=== PATIENT | female | born 1945 | race Caucasian/White ===

== ENCOUNTER → 2018-05-04 10:44 | Outpatient (POV) | payer MEDICARE, OTHER, SELFPAY | PROVIDERS: Visit Provider Dentist | DX: Z00.00 Encounter for general adult medical examination without abnormal findings (principal) ==

== ENCOUNTER → 2018-05-17 07:00 | Outpatient (CLI) | payer MEDICARE, OTHER, SELFPAY ==
--- NOTE | 2018-05-17 07:04 | CT_ITS ---
CT abdomen pelvis wo con CLINICAL INDICATION: Right flank pain with dysuria and hematuria ITS.REASON: DYSURIA, ACUTE RT FLANK PAIN, HEMATURIA ORDERING PHYSICIAN: Verna Sarmiento PATIENT AGE: 72 years COMPARISON: None TECHNIQUE: Axial images obtained with sagittal and coronal reformats. All CT scans at the facility use one or more dose reduction, viz: automated exposure control, ma/kV adjustment per patient size (including targeted exams where dose is matched to indication, i.e. head), or iterative reconstruction technique. PROCEDURE: Oral Contrast: None IV Contrast: None . FINDINGS: There are mild atelectatic or fibrotic changes in the right lung base. The liver has an unremarkable appearance. Gallstones are present within a contracted gallbladder. Spleen and adrenal glands have an unremarkable appearance as does the pancreas There is mild dilatation of the right renal collecting system and right ureter. A faint calcific density is present in the right paracentral and posterior aspect of the urinary bladder at 3 mm and may be due to a stone just at the ureterovesical junction or within the urinary bladder. No left renal calculi are evident. No intestinal obstruction or free air. Prior appendectomy. Sigmoid and descending colon diverticulosis without evidence of diverticulitis. Multiple calcifications are present involving the uterus and may be related to fibroid involvement No acute bony findings. IMPRESSION: 1. Mild ectasia of the right renal collecting system secondary to a 3 mm stone at the ureterovesical junction or recently passed stone near the UVJ 2. Diverticulosis without evidence of diverticulitis
== END ==
PROVIDERS: PCP Nurse Practitioner Family; Visit Provider Nurse Practitioner Family
DX: R10.9 Unspecified abdominal pain (principal); R30.0 Dysuria; R31.9 Hematuria, unspecified
CPT/HCPCS: 74176

== ENCOUNTER → 2020-11-14 13:43 | Outpatient (CLI) | payer MEDICARE, OTHER, SELFPAY ==
--- NOTE | 2020-11-14 13:51 | US_ITS ---
PROCEDURE: US THYROID CLINICAL INDICATION: THYROID NODULE Follow-up thyroid nodules COMPARISON: US THY US THYROID from 11/02/2016 US BX US BIOPSY OR PARACENTESIS from 11/29/2016 FINDINGS: Right lobe: 2.1cm x 4.3cm x 1.4cm. The 2.2 x 1.4 cm isoechoic to slightly hyperechoic nodule with some internal areas of decreased echogenicity in the mid polar region. Previously this had a more cystic appearance but no change in size with no obvious internal calcifications. There is some lobularity of this nodule anteriorly which may actually represent an additional small nodule. This nodule was previously biopsied and was benign. Isoechoic nodule upper pole at 1 cm Left lobe: 3.9cm x 7.1cm x 3.2cm. Solid-appearing 2.6 x 1.5 cm isoechoic nodule mid polar region. 4.3 x 2.7 cm mixed nodule mid polar area. 4 x 2.7 cm slightly hyperechoic mixed nodule in the lower pole. These 2 dominant nodules on the left 4 previously biopsied and were benign Isthmus: Slightly thickened at 6 mm Additional findings: IMPRESSION: Multinodular goiter as described above overall not significantly changed. Scanning technique is somewhat different on today's exam compared to the previous study. Consider 6-12 month follow-up to confirm stability. Dictated by: Rakesh Allen MD 11/18/2020 08:23 Rakesh Allen MD in [place] 11/18/2020 08:23
== END ==
PROVIDERS: PCP Family Medicine; Visit Provider Nurse Practitioner Family
DX: E04.1 Nontoxic single thyroid nodule (principal)
CPT/HCPCS: 76536

== ENCOUNTER → 2022-02-17 12:29 | Outpatient (CLI) | payer MEDICARE, OTHER, SELFPAY ==
--- NOTE | 2022-02-17 12:35 | US_ITS ---
FINAL REPORT CLINICAL HISTORY: THYROID NODULE FINDINGS: THYROID ULTRASOUND Sonographic images of the thyroid was obtained. The right lobe of the thyroid measures 4.2 x 2.2 x 1.4 cm. The left lobe of the thyroid measures 6.5 x 4.8 x 3.1 cm. The isthmus measures 4 mm. There are multiple nodules in the bilateral lobes of the thyroid. The individual nodules measure up to 1.7 cm in the mid right lobe and up to 2.1 cm in the left mid lobe. There is a dominant nodule in the left lower lobe measures 6.1 x 3.1 cm. There are numerous other smaller nodules. IMPRESSION: Multiple thyroid nodules consistent with TI-RADS 4 with least 3 nodules greater than 1.5 cm. Bilateral nodule sampling is recommended. Reviewed, Interpreted and Dictated by Robert Mcdonald MD Transcribed by Gracie Becerra Authenticated and [facility]
== END ==
PROVIDERS: PCP Family Medicine; Visit Provider Nurse Practitioner Family
DX: E04.1 Nontoxic single thyroid nodule (principal)
CPT/HCPCS: 76536

== ENCOUNTER 2022-11-01 14:44 | Emergency (ER) | payer MEDICARE, OTHER, SELFPAY ==
[2022-11-01 15:05] VITALS: BP 142/83; PULSE 97; RESP 21; TEMP 37.4; O2SAT 97; BMI 28.3
--- NOTE | 2022-11-01 15:30 | EXP.UTC ---
Discharge Plan Disposition Patient Disposition: Home, Self-Care Condition: Good Prescriptions Prescriptions: New azithromycin [Zithromax Z-Juan] 250 mg tablet See Rx Instructions .ROUTE .COMPLEX 5 Days Qty: 6 0RF Rx Instructions: For 250 mg dose pack: take 500 mg today (day 1), then 250 mg for 4 days (days 2-5) benzonatate 100 mg capsule 100 mg PO TID PRN (Reason: cough) Qty: 30 0RF guaifenesin [Mucinex] 600 mg tablet extended release 12hr 600 mg PO BID PRN (Reason: cough/congestion) Qty: 20 0RF albuterol sulfate [Proventil HFA] 90 mcg/actuation HFA aerosol inhaler 1 - 2 inh inhalation Q6H PRN (Reason: shortness of breath or wheezing) Qty: 8.5 0RF prednisone 10 mg tablet 10 mg PO BID 5 Days Qty: 10 0RF No Action atorvastatin 20 mg tablet 20 mg PO HS Referrals Follow up/Referrals: Georgette Messer MD [Primary Care Provider] - See instructions Activity Restrictions/Add. Instructions Additional Instructions/Restrictions: Start antibiotic today. Be sure to complete entire prescription even if feeling better Monitor temp. Tylenol every 4 hours as needed and / or ibuprofen every 6 hours as needed ( As long as your primary care physician has told you that it ok to take both. For fever/aches/pains ER if no less than 101 despite Tylenol or Motrin Humidifier/vaporizer or hot steamy shower Inhaler every 4-6 hours as needed like we discussed. If unsure how to use it, ask pharmacist to demonstrate how. Should help open airways and improve cough, wheezing, and shortness of breath Mucinex during the day for your cough and cough suppressant only at night. Be sure to drink lots of water. *Tessalon Perles will not cause drowsiness but use at bedtime to help stop cough so that you may get some rest. *Start oral steroid tomorrow. Helps with inflammation therefore, cough and wheezing. Follow directions on the package. Reviewed side effects. Patient reports taking them before. Follow up IMMEDIATELY for new or worsening of symptoms OR no noticeable improvement over the next 48-72 hours. 911 immediately for any life threatening symptoms such as chest pain or difficulty breathing Clinical Impressions Clinical Impression: Bronchitis Sinusitis Qualifiers: Sinusitis location: unspecified location Chronicity: unspecified Qualified Code(s): J32.9 - Chronic sinusitis, unspecified Instructions Patient Instructions: Sinusitis, DI for Sinusitis Discharge ED Provider: Malka Patterson [facility] [place] HPI General Stated complaint: Drainage, chest congestion Mode of Arrival: Ambulatory Source of Information: Patient Limitations: No Limitations Time Seen by Provider: 11/01/22 15:30 Description of Symptoms (Recalled from Triage Doc. by RN): PATIENT C/O CHEST CONGESTION, DRY COUGH, AND FEVER X 2 DAYS HEENT Symptoms (Recalled from RN notes): No Resp Symptoms (Recalled from RN notes): Yes Skin Symptoms (Recalled from RN notes): No MS Symptoms (Recalled from RN notes): No Functional Status (Recalled from RN notes): WNL History of Present Illness Provider Complaint: Patient states that she been having sinus congestion and pressure with drainage in the back of her throat and feels like it is trying to settle into her chest States that she use to get this about once a year and had to get antibiotics for it States she wanted to come in and get something for it and for the cough before it got too bad States that she feels like she may have bronchitis Related Data Home Medications Medication Instructions Recorded Confirmed atorvastatin 20 mg tablet 20 mg PO HS Cholesterol 11/01/22 11/01/22 Previous Rx's Medication Instructions Recorded albuterol sulfate 90 mcg/actuation 1 - 2 inh inhalation Q6H PRN 11/01/22 aerosol inhaler (Proventil HFA) shortness of breath or wheezing #8.5 grams azithromycin 250 mg tablet See Rx Instructions PO .COMPLEX 5 11/01/22 (Zithromax Z-Juan) days #6 tabs
[2022-11-01 15:58] VITALS: BP 142/83; PULSE 97; RESP 21; TEMP 37.4; O2SAT 97
== END 2022-11-01 16:20 | disposition home or self-care (01) ==
PROVIDERS: Emergency Provider Nurse Practitioner; PCP Family Medicine
DX: J20.9 Acute bronchitis, unspecified (principal); J32.9 Chronic sinusitis, unspecified; R50.9 Fever, unspecified; F17.210 Nicotine dependence, cigarettes, uncomplicated
CPT/HCPCS: 96372; 99204; 99212; 99214; G0463; J0696

== ENCOUNTER → 2023-04-21 09:56 | Outpatient (CLI) | payer MEDICARE, OTHER, SELFPAY ==
[2023-04-21 13:27] LABS: Thyroid Stimulating Hormone 3.61 uIU/mL (0.465-4.68)
== END ==
PROVIDERS: PCP Family Medicine; Visit Provider Nurse Practitioner
DX: E04.1 Nontoxic single thyroid nodule (principal); R79.89 Other specified abnormal findings of blood chemistry; Z98.890 Other specified postprocedural states
CPT/HCPCS: 36415; 84443

== ENCOUNTER 2023-05-07 10:22 | Emergency (ER) | payer MEDICARE, OTHER, SELFPAY ==
[2023-05-07 10:35] VITALS: BP 126/84; PULSE 104; RESP 20; TEMP 36.8; O2SAT 98; BMI 26.6
[2023-05-07 10:42] LABS: Apearance,Urine Clear (Clear); Color,Urine Yellow (Yellow); PH,Urine 7.5 (5.0-8.5); Protein,Urine Negative (Negative); Specific Gravity, Urine 1.015 (1.005-1.030)
[2023-05-07 10:43] LABS: Bilirubin,Urine Negative (Negative); Blood, Urine Trace (Negative); Glucose,Urine (UA) Negative (Negative); Ketones,Urine Negative (Negative); UTC Leukocyte Esterase,Urine Negative (Negative); UTC Nitrate,Urine Negative (Negative); Urobilinogen,Urine 0.2 EU/dl (0.2)
--- NOTE | 2023-05-07 10:50 | EXP.UTC ---
Discharge Plan Disposition Patient Disposition: Home, Self-Care Condition: Good Prescriptions Prescriptions: New methocarbamol 500 mg tablet 500 mg PO BID PRN (Reason: muscle spasm) Qty: 12 0RF No Action atorvastatin 20 mg tablet 20 mg PO HS Referrals Follow up/Referrals: Georgette Messer MD [Primary Care Provider] - See instructions Activity Restrictions/Add. Instructions Additional Instructions/Restrictions: Follow up with your Family Doctor on Tuesday if no improvement or any worsening of symptoms Over the counter muscle rubs like Biofreeze may help with muscle spasms Return if needed Straight to ER if any life threatening symptoms Clinical Impressions Clinical Impression: Low back pain Qualifiers: Chronicity: unspecified Back pain laterality: right Sciatica presence: unspecified whether sciatica present Qualified Code(s): M54.50 - Low back pain, unspecified Instructions Patient Instructions: DI for Low Back Pain, Low Back Pain, Methocarbamol Discharge ED Provider: Malka Patterson [facility] General Stated complaint: right side and back pain, no accident Mode of Arrival: Ambulatory Source of Information: Patient Limitations: No Limitations Time Seen by Provider: 05/07/23 10:50 Description of Symptoms (Recalled from Triage Doc. by RN): PATIENT C/O RIGHT FLANK PAIN THAT STARTED TUESDAY AND URINARY FREQUENCY. SHE STATES SHE SAW HER PCP YESTERDAY AND WAS TOLD SHE HAD BLOOD IN HER URINE AND WAS STARTED ON MACROBID. HEENT Symptoms (Recalled from RN notes): No Resp Symptoms (Recalled from RN notes): No Skin Symptoms (Recalled from RN notes): No MS Symptoms (Recalled from RN notes): No Functional Status (Recalled from RN notes): WNL History of Present Illness Provider Complaint: Patient states that she started on Tuesday with right low back/flank pain States that she did have a little urinary frequency and hurts worse with certain movements States that she seen her PCP yesterday and they checked her for UTI States that they treated for UTI since she had trace blood but she is still having achy like feeling in her right lower back States that she was up most of the night and wanted to come in and get checked again states that she did remember lifting a heavy air conditioner out of her window and has been bottle feeding a calf may have pulled something in her lower back area but not sure Denies loss of control of bowel or bladder Related Data Home Medications Medication Instructions Recorded Confirmed atorvastatin 20 mg tablet 20 mg PO HS Cholesterol 11/01/22 05/07/23 Previous Rx's Medication Instructions Recorded methocarbamol 500 mg tablet 500 mg PO BID PRN muscle spasm #12 05/07/23 tabs Allergies Allergy/AdvReac Type Severity Reaction Status Date / Time No Known Allergies Allergy Verified 03/21/18 09:48 Worker's Comp Is this a Worker's Comp case?: No [facility] Disclaimer: The information contained in this section may have been updated after the patient was seen, as this information can be updated by other users. Medical History (Updated 05/07/23 @ 11:01 by Malka Patterson APRN) Hyperlipidemia Kidney stone Thyroid goiter Urinary tract infection Surgical History (Updated 05/07/23 @ 10:50 by Marce Dennis RN) History of appendectomy History of tubal ligation Social History (Updated 11/01/22 @ 16:18 by Malka Patterson APRN) Smoking Status: Current every day smoker tobacco type: cigarettes alcohol intake: never counseling provided: none substance use type: denies use current occupational status: retired Travel in the last 8 weeks: None caffeine: No ROS Obtained: Yes All systems reviewed & no additional complaints except as documented and Yes Systems reviewed as appropriate & no additional complaints except as documented Constitutional Constitutional: Reports system reviewed and no additional complaints, except as documented, Reports as per HPI, Denies body
[2023-05-07 11:00] VITALS: BP 126/84; PULSE 104; RESP 20; TEMP 36.8; O2SAT 98
== END 2023-05-07 11:07 | disposition home or self-care (01) ==
PROVIDERS: Emergency Provider Nurse Practitioner; PCP Family Medicine
DX: M54.50 Low back pain, unspecified (principal); R10.31 Right lower quadrant pain; F17.210 Nicotine dependence, cigarettes, uncomplicated; E78.5 Hyperlipidemia, unspecified
CPT/HCPCS: 81003; 99212; 99214; G0463

== ENCOUNTER 2024-02-13 07:43 | Outpatient (CLI) | payer MEDICARE, OTHER, SELFPAY ==
--- NOTE | 2024-02-13 07:46 | MM_ITS ---
PROCEDURE INFORMATION: Exam: MG Bilateral Screening 3D Mammography Exam date and time: 02/13/2024 8:13 AM Age: 78 years old Clinical indication: Screening examination TECHNIQUE: Imaging protocol: Bilateral Screening tomosynthesis and 2D mammography including computer-aided detection (CAD) when performed. COMPARISON: 1. MG DMSB DIG MAMM-SCREEN NEETA W/CAD 06/25/2016 10:25 AM 2. MG DMSB DIGITAL MAMM-SCREEN BILATERAL 06/15/2010 8:30 AM FINDINGS: MAMMOGRAPHY: Breast composition: There are scattered areas of fibroglandular density. Mass: No suspicious masses. Architectural distortion: None. Calcifications: No suspicious calcifications. Asymmetric density: None. Skin thickening: None. Axillary adenopathy: None. IMPRESSION: No mammographic evidence of malignancy. Annual screening is recommended unless otherwise clinically indicated. ASSESSMENT: BI-RADS Category 1: Negative
== END 2024-02-13 23:59 | disposition home or self-care (01) ==
LOC: RAD 07:44
PROVIDERS: PCP Nurse Practitioner; Visit Provider Nurse Practitioner
DX: Z12.31 Encounter for screening mammogram for malignant neoplasm of breast (principal)
CPT/HCPCS: 77063; 77067

== ENCOUNTER 2024-03-08 06:31 | Outpatient (CLI) | payer MEDICARE, OTHER, SELFPAY ==
--- OUTSIDE RECORDS SUMMARY | 2024-03-08 06:34 | XMS_ITS ---
Author Organization Unknown [facility] No information ASSESSMENT No information CHIEF COMPLAINT No information MEDICATIONS No information OBJECTIVE DATA No information PHYSICAL EXAMINATION No information TREATMENT PLAN Planned Care Start Date Provider Encounter for Check-up [id number] Messer PROBLEMS No information RESULTS No information REVIEW OF SYSTEMS No information SUBJECTIVE DATA No information VITAL SIGNS No information
--- OUTSIDE RECORDS SUMMARY | 2024-03-08 06:34 | XMS_ITS ---
Author Organization [facility] No information ASSESSMENT No information CHIEF COMPLAINT No information Medications Date Medication Dosage Dosageunit Startdate Active Dispense Refills Ndccode Isprescription Srcstatus 04/13 00:00 :00 Acidophilus - Capsule null 0 [id number] Discontinu ed 12/15 00:00 :00 Acidophilus - Capsule null 1 [id number] 865 Taking 04/13 00:00 :00 Amoxicillin 500 MG Tablet 04/13/2023 00:00:00 1 20 Tablet 0 [id number] 301 P Start 05/06 00:00 :00 Ativan 0.5 MG Tablet 06/05/2020 00:00:00 1 80 Tablet 0 [id number] 301 P Not Taking 04/13 00:00 :00 Ativan 0.5 MG Tablet 06/05/2020 00:00:00 1 80 Tablet 0 [id number] 301 P Not Taking 12/15 00:00 :00 Ativan 0.5 MG Tablet 06/05/2020 00:00:00 1 80 Tablet 0 [id number] 301 P Not Taking 05/06 00:00 :00 Atorvastati n Calcium 20 MG Tablet null 1 90 Tablet 3 [id number] 910 P Taking 04/13 00:00 :00 Atorvastati n Calcium 20 MG Tablet null 1 90 Tablet 3 [id number] 910 P Refill 04/13 00:00 :00 Atorvastati n Calcium 20 MG Tablet null 1 [id number] 910 Taking 04/13 00:00 :00 Centrum Silver - Tablet null 0 [id number] 719 Discontinu ed 12/15 00:00 :00 Centrum Silver - Tablet null 1 [id number] 719 Taking 04/13 00:00 :00 Cephalexin 500 MG Tablet 12/15/2022 00:00:00 0 20 Tablet 0 [id number] 001 P Discontinu ed 12/15 00:00 :00 Cephalexin 500 MG Tablet 12/15/2022 00:00:00 1 20 Tablet 0 [id number] 001 P Start 04/13 00:00 :00 Flax Seed Oil 1000 MG Capsule null 0 [id number] 31 Discontinu ed 12/15 00:00 :00 Flax Seed Oil 1000 MG Capsule null 1 [id number] 31 Taking 04/13 00:00 :00 Lipitor 20 MG Tablet null 0 90 Tablet 3 [id number] 410 P Discontinu ed 02/16 00:00 :00 Lipitor 20 MG Tablet null 1 90 Tablet 3 [id number] 410 P Refill 12/15 00:00 :00 Lipitor 20 MG Tablet null 1 90 Tablet 3 [id number] 410 P Taking 05/06 00:00 :00 Nitrofurant oin Monohyd Macro 100 MG Capsule 05/06/2023 00:00:00 1 14 0 [id number] 201 P Start 05/06 00:00 :00 Norvasc 2.5 MG Tablet null 1 90 2 [id number] 105 Not Taking 04/13 00:00 :00 Norvasc 2.5 MG Tablet null 1 90 2 [id number] 105 Not Taking 12/15 00:00 :00 Norvasc 2.5 MG Tablet null 1 90 2 [id number] 105 Not Taking 05/06 00:00 :00 Nystatin 576552 UNIT/GM Ointment null 0 1 2 [id number] 715 P Discontinu ed 04/13 00:00 :00 Nystatin 712994 UNIT/GM Ointment null 1 1 2 [id number] 715 P Not Taking 12/15 00:00 :00 Nystatin 226090 UNIT/GM Ointment null 1 1 2 [id number] 715 P Not Taking 04/13 00:00 :00 ZyrTEC Allergy 10 MG Tablet null 0 [id number] 636 Discontinu ed 12/15 00:00 :00 ZyrTEC Allergy 10 MG Tablet null 1 [id number] 636 Taking OBJECTIVE DATA No information PHYSICAL EXAMINATION No information TREATMENT PLAN No information PROBLEMS No information RESULTS No information REVIEW OF SYSTEMS No information SUBJECTIVE DATA No information VITAL SIGNS No information
--- NOTE | 2024-03-08 06:37 | CT_ITS ---
FINAL REPORT CLINICAL HISTORY: CERVICAL SPINE PAIN, IMPINGEMENT RIGHT SHOULDER FINDINGS: Axial CT images of the cervical spine were obtained without contrast. Sagittal and coronal reformatted images were also obtained. This study was performed with techniques to keep radiation doses as low as reasonably achievable (ALARA). Individualized dose reduction techniques using automated exposure control or adjustment of mA and/or kV according to the patient's size were employed. There is no evidence of fracture or dislocation. There is fusion from C5-C7. The bones are osteopenic. Multilevel mild degenerative changes are identified. C2-3. Central disc protrusion indents the thecal sac. There is mild central canal stenosis with an AP diameter of the thecal sac of 7 mm. C3-4. Uncovertebral osteophytes are present with mild right neural foraminal narrowing. C4-5: Disc osteophyte complex is present with mild right neural foraminal narrowing. C5-6: This level is fused. There is no significant canal stenosis or neural foraminal narrowing. C6-7: This level is fused. There is no significant canal stenosis or neural foraminal narrowing. C7-T1: An annular disc bulge and uncovertebral osteophytes are present. There are postoperative changes from left thyroid lobe resection. IMPRESSION: Central disc protrusion at C3-3 with mild central canal stenosis. Multilevel degenerative disc disease. Reviewed, Interpreted and Dictated by Nehemiah Lindquist III, MD Transcribed by Hilaria Bradley Authenticated and [facility]
== END 2024-03-08 23:59 | disposition home or self-care (01) ==
LOC: RAD 06:32
PROVIDERS: PCP Nurse Practitioner; Visit Provider Nurse Practitioner
DX: M54.2 Cervicalgia (principal); M75.41 Impingement syndrome of right shoulder
CPT/HCPCS: 72125